=== PATIENT | male | born 1990 | race Caucasian/White ===

== ENCOUNTER 2016-11-08 12:15 | Emergency (ER) | payer BC, OTHER ==
[2016-11-08 12:25] VITALS: BP 167/103; PULSE 88; RESP 16; TEMP 97.7; O2SAT 99
--- NOTE | 2016-11-08 13:18 | EDPHY ---
H & P Stated Complaint: back pain HPI/ROS: CHIEF COMPLAINT: Sacral pain HISTORY OF PRESENT ILLNESS: The patient is a 26 y/o male complaining of right- sided sacral back pain worsening over the last week. He says for the past several years he feels constant "clicks and movements there and sometimes something shifts and it makes my torso crooked." He's seen multiple chiropractors for this, but his PCP recently recommended that he stop seeing chiropractors. He uses Flexeril infrequently and uses ice in addition to chiropractic adjustments for his pain. Today he took 400mg ibuprofen without significant improvement. He describes his pain as "intense" and constant that worsens with daily movements. He denies leg or buttock pain, weakness, paresthesias, bowel or bladder issues, diarrhea, vomiting, abdominal pain. He is otherwise healthy. No recent illness or trauma. REVIEW OF SYSTEMS: A ten point review of systems was performed and is negative with the exception of the items mentioned in the HPI. Source: Patient - Personal History Current Tetanus Diphtheria and Acellular Pertussis (TDAP): Yes - Medical/Surgical History PMH: Ongoing right-sided sacral pain. Hx Asthma: No Hx Chronic Respiratory Disease: No Hx Diabetes: No Hx Cardiac Disease: No Hx Renal Disease: No Hx Cirrhosis: No Hx Alcoholism: No Hx HIV/AIDS: No Hx Splenectomy or Spleen Trauma: No - Social History Smoking Status: Never smoked Additional Social History: From [place]. Plans to start as a student at [employer]. PCP in [place]. - Physical Exam Exam: General Appearance: Alert. Vital signs reviewed. Blood pressure 167/103. Neck: Nontender over cervical spine. Respiratory: Lungs are clear to auscultation; no wheezes, rales, or rhonchi. Cardiovascular: Regular rate and rhythm; no murmur, rub, or gallop. Gastrointestinal: Abdomen is soft and nontender, no masses or organomegaly, bowel sounds normal. Skin: Warm and dry, no rashes on exposed skin, normal color. Back: Tenderness to the right of low lumbar and sacral spine along paraspinous muscles. Nontender to palpation over the midline thoracolumbar spine. No CVAT. Extremities: No pain with full passive and active ROM of right hip. Neurological: Alert and oriented. Moving all four extremities easily and equally. Strength is 5 over 5 bilaterally with testing of all major motor groups. Sensation is intact to light touch over all 4 extremities. Deep tendon reflexes are 2+ in the biceps and knees bilaterally. Gait is normal. Normal flex/ext at waist. Psychiatric: Normal affect. Constitutional: Initial Vital Signs Temperature (C) 36.5 C 11/08/16 12:22 Heart Rate 88 11/08/16 12:22 Respiratory Rate 16 11/08/16 12:22 Blood Pressure 167/103 H 11/08/16 12:22 O2 Sat (%) 99 11/08/16 12:22 O2 Delivery Mode Room Air Allergies/Adverse Reactions: No Known Allergies Allergy (Unverified 05/03/10 18:14) Home Medications: Medication Instructions Recorded No Meds 04/29/10 Ondansetron Odt [Zofran Odt 4 mg 4 mg PO Q4PRN PRN #10 tab 05/03/10 (*)] Medical Decision Making ED Course/Re-evaluation: This is a healthy 26 y/o male with a history of chronic right-sided low back pain worsening over the last week. He is neurovascularly intact on exam with no evidence of acute cauda equina syndrome or radiculopathy. He has no symptoms or findings requiring emergent intervention or imaging. He is quite concerned about the cause of his pain and thinks that it might be due to sacroiliac dysfunction, about which he has been reading. I recommended using 400-600mg ibuprofen 3x daily for the next several days and to follow up with a milk processing worker for further management of his pain. He agrees with plan for follow up. Return precautions given. He was noted to be hypertensive while in the ED and advised to have this followed up by a PCP. Differential Diagnosis: DDX includes but is not limited to fracture, malignancy, radiculopathy, musculoskeletal pain, ureterolithiasis. Departure - Departure Disposition: Home, Routine, Self-Care Clinical Impression: Sacroiliac pain Condition: Good Instructions: Chronic Back Pain (ED) Additional Instructions: 1. Take 400mg to 600mg ibuprofen 3 times daily while symptoms are present. 2. Use Flexeril at night for pain and muscle spasm. 3. Follow up with Dr. Ruffin, back pain specialist, this week. 4. Follow up with a primary care provider to establish care. You've been referred to Dr. Baires. 5. Return to the ED for weakness or numbness in your leg, urinary or bowel incontinence, or other worsening of condition. Referrals: ASAD DYE MD [Other] - As per Instructions Natacha Baires MD [Medical Doctor] - As per Instructions Krishan Ruffin MD [Medical Doctor] - As per Instructions Donald Boudreaux MD [Medical Doctor] - As per Instructions Report Scribed for: Stella Del Cid Report Scribed by: Bhavani Pires Date of Report: 11/08/16 Time of Report: 13:29 Physician Review and Approval Statement: 11/08/16 13:18 Portions of this note were transcribed by the medical typist. I, Dr. Stella Del Cid, personally performed the history, physical exam, and medical decision- making; and confirmed the accuracy of the information in the transcribed note.
== END 2016-11-08 14:07 | disposition home or self-care (01) ==
DX: M53.3 Sacrococcygeal disorders, not elsewhere classified (principal)